=== PATIENT | female | born 1995 | race Caucasian/White ===

== ENCOUNTER 2017-06-04 12:48 | Emergency (ER) | payer SELFPAY ==
--- NOTE | 2017-06-04 12:58 | ER ---
Nurse's Notes [facility] Name: Yovani Anglin Age: 21 yrs Sex: Female : 1995 Arrival Date: 06/04/2017 Time: 12:49 Bed Waiting Private MD: Diagnosis: ED Course: 06/04 12:49 Patient arrived in ED. as 12:57 Rl Marie MD is Attending Physician. aj Administered Medications: No medications were administered Outcome: 12:57 Eloped from waiting room. aj 12:57 Patient left the ED. aj Signatures: Alma Rosa Ta, RN RN Aylin Tapia as
== END 2017-06-04 12:57 | disposition left against medical advice (07) ==
LOC: ER 12:48
DX: Z02.9 Encounter for administrative examinations, unspecified (principal)

== ENCOUNTER 2017-07-01 10:38 | Emergency (ER) | payer SELFPAY ==
[2017-07-01 11:48] LABS: Absolute Lymphocytes (CBC) 1.7 K/uL (0.7-4.9); Absolute Monocytes 0.5 K/uL (0.1-1.3); Absolute Neutrophil 6.3 K/uL (1.8-8.0); Basophils % 0.3 % (0-1.3); Eosinophils % 0.9 % (0-4.4); Hematocrit 36.1 % (36.0-45.0); Lymphocytes % 19.8 % (15.3-44.8); MCH 26.5 pg (27.0-35.0); MCV 79.7 fL (80-100); MPV 8.5 fL (7.6-11.3); Monocytes % 6.2 % (3.3-12.3); RBC Red Blood Cell Count 4.53 M/uL (3.86-4.86)
[2017-07-01 12:17] LABS: Bicarbonate 22 mEq/L (21-31); Glucose Level 101 mg/dL (65-120); Sodium Level 135 mEq/L (135-145)
[2017-07-01 12:18] LABS: BUN Blood Urea Nitrogen 14 mg/dL (6-20)
[2017-07-01 12:38] LABS: T3 Free 3.79 pg/ml (2.84-4.24)
[2017-07-01] MEDS ORDERED: KETOROLAC 30 MG/ML INJ ONE (13:01)
--- NOTE | 2017-07-01 13:18 | ER ---
Nurse's Notes [facility] Name: Yovani Anglin Age: 21 yrs Sex: Female : 1995 Arrival Date: 07/01/2017 Time: 10:41 Bed 12 Private MD: None, None Diagnosis: Pain in left wrist;Pain in right wrist Presentation: 07/01 10:44 Presenting complaint: Patient states: "i dont know what happened but about 330 this tw2 morning both my right and left wrist started hurting", denies fall/injury. Transition of care: patient was not received from another setting of care. Onset of symptoms was July 01, 2017. Risk Assessment: Do you want to hurt yourself or someone else? Patient reports no desire to harm self or others. Initial Sepsis Screen: Does the patient meet any 2 criteria? No. Patient's initial sepsis screen is negative. Does the patient have a suspected source of infection? No. Patient's initial sepsis screen is negative. Care prior to arrival: None. 10:44 Method Of Arrival: Ambulatory tw2 10:44 Acuity: JEREMIAH 3 tw2 Triage Assessment: 13:00 General: Appears in no apparent distress. Behavior is calm, cooperative. 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 - Social history:: Smoking status: Patient uses tobacco products, smokes one-half pack cigarettes per day. Screenin:58 Abuse screen: Denies threats or abuse. Nutritional screening: No deficits noted. tw2 Tuberculosis screening: No symptoms or risk factors identified. Fall Risk None identified. Assessment: 11:30 General: Appears in no apparent distress. Behavior is calm, cooperative. Pain: iw Complains of pain in right wrist and left wrist and left hand and right hand. Neuro: Level of Consciousness is awake, alert, obeys commands, Oriented to person, place, time, Moves all extremities. Full function. Cardiovascular: Patient's skin is warm and dry. Respiratory: Respiratory effort is even, unlabored, Respiratory pattern is regular, symmetrical. Derm: Skin is pink, warm \\T\\ dry. normal. Musculoskeletal: Range of motion: limited in left wrist and right wrist. 12:32 Reassessment: Patient appears in no apparent distress at this time. iw Vital Signs: 10:45 BP 142 / 85; Pulse 93; Resp 17; Temp 99(O); Pulse Ox 99% on R/A; Weight 90.72 kg (R); tw2 Height 5 ft. 2 in. (157.48 cm); Pain 10/10; 10:45 Body Mass Index 36.58 (90.72 kg, 157.48 cm) tw2 ED Course: 10:41 Patient arrived in ED. mr 10:42 None, None is Private Physician. mr 10:45 Triage completed. tw2 10:45 Arm band placed on. tw2 11:08 Tiny [facility]C [facility]. kb 11:08 Rl Marie MD is Attending Physician. kb 11:21 Lea Sellers, HILARY is Primary Nurse. iw 11:30 Patient has correct armband on for positive identification. iw 11:45 Initial lab(s) drawn, by me, sent to lab. Inserted saline lock: 22 gauge in right iw forearm, using aseptic technique. Blood collected. 13:44 No provider procedures requiring assistance completed. IV discontinued, intact, iw bleeding controlled, No redness/swelling at site. Pressure dressing applied. Administered Medications: 13:00 Drug: TORadol 30 mg Route: IVP; Site: right forearm; iw Outcome: 13:17 Discharge ordered by . kb 13:44 Discharged to home ambulatory, with family. iw 13:44 Condition: good 13:44 Discharge instructions given to patient, family, Instructed on discharge instructions, follow up and referral plans. medication usage, Demonstrated understanding of instructions, follow-up care, medications, Prescriptions given X 1. 13:45 Patient left the ED. iw Signatures: Tiny Ramirez FNP-C FNP-Chasity Hoang mr Lea Sellers, RN RN iw Gaby Lee RN RN tw2
--- NOTE | 2017-07-01 13:18 | EDPHYS ---
Physician Documentation [facility] Name: Yovani Anglin Age: 21 yrs Sex: Female : 1995 Arrival Date: 07/01/2017 Time: 10:41 Bed 12 Private MD: None, None ED Physician Rl Marie HPI: 07/01 11:34 This 21 yrs old Female presents to ER via Ambulatory with complaints of Wrist kb Pain, Hand Swelling. 11:34 The patient or guardian reports decreased range of motion, pain, swelling, tenderness. kb The complaints affect the left wrist diffusely, right wrist diffusely. Context: The problem was sustained at home, resulted from an unknown cause. Onset: The symptoms/episode began/occurred last night. Modifying factors: The symptoms are alleviated by nothing, the symptoms are aggravated by movement. Associated signs and symptoms: The patient has no apparent associated signs or symptoms. Compartment Syndrome. The patient has not experienced similar symptoms in the past. The patient has not recently seen a physician. 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 - Social history:: Smoking status: Patient uses tobacco products, smokes one-half pack cigarettes per day. ROS: 11:31 Constitutional: Negative for fever, chills, and weight loss, ENT: Negative for injury, kb pain, and discharge, Neck: Negative for injury, pain, and swelling, Cardiovascular: Negative for chest pain, palpitations, and edema, Respiratory: Negative for shortness of breath, cough, wheezing, and pleuritic chest pain, Abdomen/GI: Negative for abdominal pain, nausea, vomiting, diarrhea, and constipation, Skin: Negative for injury, rash, and discoloration, Neuro: Negative for headache, weakness, numbness, tingling, and seizure. 11:31 MS/extremity: Positive for decreased range of motion, pain, swelling, tenderness, of the right hand, left hand, right wrist and left wrist. Exam: 11:31 Constitutional: This is a well developed, well nourished patient who is awake, alert, kb and in no acute distress. Head/Face: Normocephalic, atraumatic. Chest/axilla: Normal chest wall appearance and motion. Nontender with no deformity. No lesions are appreciated. Cardiovascular: Regular rate and rhythm with a normal S1 and S2. No gallops, murmurs, or rubs. Normal PMI, no JVD. No pulse deficits. Respiratory: Lungs have equal breath sounds bilaterally, clear to auscultation and percussion. No rales, rhonchi or wheezes noted. No increased work of breathing, no retractions or nasal flaring. Abdomen/GI: Soft, non-tender, with normal bowel sounds. No distension or tympany. No guarding or rebound. No evidence of tenderness throughout. Skin: Warm, dry with normal turgor. Normal color with no rashes, no lesions, and no evidence of cellulitis. Neuro: Awake and alert, GCS 15, oriented to person, place, time, and situation. Cranial nerves II-XII grossly intact. Motor strength 5/5 in all extremities. Sensory grossly intact. Cerebellar exam normal. Normal gait. 11:31 Musculoskeletal/extremity: Extremities: grossly normal except: noted in the right wrist and left wrist and left hand and right hand: decreased ROM, pain, swelling, tenderness, ROM: limited passive range of motion due to pain, in the right hand and left hand and right wrist and left wrist, Circulation is intact in all extremities. Sensation intact. Vital Signs: 10:45 BP 142 / 85; Pulse 93; Resp 17; Temp 99(O); Pulse Ox 99% on R/A; Weight 90.72 kg (R); tw2 Height 5 ft. 2 in. (157.48 cm); Pain 10/10; 10:45 Body Mass Index 36.58 (90.72 kg, 157.48 cm) tw2 MDM: 11:08 Patient medically screened. kb 11:31 Data reviewed: vital signs, nurses notes. Data interpreted: Pulse oximetry: on room air kb is 99 %. Interpretation: normal. 13:17 Counseling: I had a detailed discussion with the patient and/or guardian regarding: the kb historical points, exam findings, and any diagnostic results supporting the discharge/admit diagnosis, lab results, the need for outpatient follow up, a orthopedic surgeon, to return to the emergency department if symptoms worsen or persist or if there are any questions or concerns that arise at home. 07/01 11:16 Order name: TSH; Complete Time: 12:56 kb 07/01 11:16 Order name: T3 Free; Complete Time: 12:56 kb 07/01 11:16 Order name: T4 Free; Complete Time: 12:56 kb 07/01 11:16 Order name: CBC with Diff; Complete Time: 11:50 kb 07/01 11:16 Order name: Basic Metabolic Panel; Complete Time: 12:56 kb 07/01 11:51 Order name: Urine Dipstick--Ancillary (enter results) bd 07/01 11:16 Order name: Urine Dipstick-Ancillary (obtain specimen); Complete Time: 11:44 kb 07/01 11:16 Order name: Urine Test (obtain specimen); Complete Time: 11:44 kb 07/01 11:51 Order name: Urine --Ancillary (enter results) bd Administered Medications: 13:00 Drug: TORadol 30 mg Route: IVP; Site: right forearm; iw Disposition: 17:32 Co-signature as Attending Physician, Rl Marie MD. rn Disposition: 07/01/17 13:17 Discharged to Home. Impression: Pain in left wrist, Pain in right wrist. - Condition is Stable. - Discharge Instructions: Wrist Pain, [id number], Carpal Tunnel Syndrome, [id number]. - Prescriptions for Diclofenac Sodium 75 mg Oral Tablet, Delayed Release (E.C.) - take 1 tablet by ORAL route 2 times per day As needed; 30 tablet. - Work release form, Medication Reconciliation Form, Thank You Letter, Antibiotic Education, Prescription Opioid Use form. - Follow up: Emergency Department; When: As needed; Reason: Worsening of condition. Follow up: Private Physician; When: 2 - 3 days; Reason: Recheck today's complaints, Continuance of care, Re-evaluation by your physician. Signatures: Dispatcher [employer] Tiny Warren FNP-C FNP-Lea Hilliard RN RN Rl Brown MD MD rn Wise, Tara, RN RN tw2 Corrections: (The following items were deleted from the chart) 13:45 13:17 07/01/2017 13:17 Discharged to Home. Impression: Pain in left wrist; Pain in iw right wrist. Condition is Stable. Forms are Medication Reconciliation Form, Thank You Letter, Antibiotic Education, Prescription Opioid Use. Follow up: Emergency Department; When: As needed; Reason: Worsening of condition. Follow up: Private Physician; When: 2 - 3 days; Reason: Recheck today's complaints, Continuance of care, Re-evaluation by your physician. kb
[2017-07-01 15:28] LABS: Urine Blood 2+ (NEG); Urine Glucose NEGATIVE (NEG); Urine Protein NEGATIVE (NEG)
== END 2017-07-01 13:45 | disposition home or self-care (01) ==
LOC: ER 10:38
DX: M25.532 Pain in left wrist (principal); M25.531 Pain in right wrist; F17.210 Nicotine dependence, cigarettes, uncomplicated; Z91.013 Allergy to seafood
CPT/HCPCS: 36415; 80048; 81003; 81025; 84439; 84443; 84481; 85025; 96374; 99284